=== PATIENT | female | born 1995 | race Two or more races ===

== ENCOUNTER 2025-03-07 04:32 | Inpatient (IN) | payer OTHER ==
[~2025-03-07] VITALS: Ht 160 cm; Wt 2.7 kg
[2025-03-07] MEDS ORDERED: CEFAZOLIN SODIUM 1,000 MG VIAL IV SCH ×2 (04:45→12:00)
[2025-03-07] MEDS ORDERED: RINGERS SOLUTION,LACTATED 1,000 ML IV SCH (04:45)
[2025-03-07] MEDS ORDERED: PRENATAL TABLE1 EAC1 PO (05:20)
[2025-03-07] MEDS ORDERED: IRON325 MG PO (05:20)
[2025-03-07] MEDS ORDERED: NIFEDIPINE20 MG PO (05:21)
[2025-03-07] MEDS ORDERED: ECOTRIN81 MG PO (05:21)
[2025-03-07] MEDS ORDERED: LOVENOX40 MG/0.4 SUBCUTANEO (05:21)
[2025-03-07 05:22] VITALS: BP 105/67
[2025-03-07] MEDS ORDERED: OXYTOCIN 10 UNITS/ML VIAL ONE (06:57)
[2025-03-07] MEDS ORDERED: ERYTHROMYCIN BASE OPHT 1GM EACH TUBE OP ONE (06:58)
[2025-03-07 07:19] VITALS: BP 113/74
[2025-03-07] MEDS ORDERED: CARBOPROST TROMETHAMINE 250 MCG/ML AMPUL IM ONE (08:34)
[2025-03-07] MEDS ORDERED: PROMETHAZINE HCL 25 MG/ML AMPUL IV SCH (12:00)
[2025-03-07] MEDS ORDERED: KETOROLAC TROMETHAMINE 30 MG VIAL IM SCH (12:00)
[2025-03-07 13:29] VITALS: BP 100/64
[2025-03-07 16:30] VITALS: BP 108/70
[2025-03-08] VITALS: BP 98/62
[2025-03-08 07:40] LABS: BASO % 0.4 % (0.1-1.2); EOS # 0.09 (0.04-0.54); EOS % 0.9 % (0.7-7.0); LYMPH # 1.71 (1.18-3.74); LYMPH % 17.6 % (19.3-53.1); MEAN PLATELET VOLUME 9.70 fl (9.4-12.4); MONO # 0.76 (0.24-0.82); MONO % 7.8 % (4.7-12.5); NEUT # 6.98 (1.56-6.13); NEUT % 71.9 % (34.0-71.1); RED CELL DISTRIBUTION WIDTH 13.2 % (11.6-14.4)
[2025-03-08 09:48] VITALS: BP 101/65
[2025-03-08] MEDS ORDERED: NAPROXEN 500 MG TABLET PO PRN (13:00)
[2025-03-08] MEDS ORDERED: DOCUSATE SODIUM 100MG CAP PO STA (14:38)
[2025-03-08 15:38] VITALS: BP 99/67
[2025-03-09 00:45] VITALS: BP 100/64
[2025-03-09 08:34] VITALS: BP 117/78
[2025-03-09] MEDS ORDERED: DOCUSATE SODIUM 100MG CAP PO SCH (09:00)
[2025-03-09 16:00] VITALS: BP 88/61
[2025-03-10] VITALS: BP 112/73
[2025-03-10 08:55] VITALS: BP 104/74; O2SAT 97
[2025-03-10 18:41] VITALS: BP 114/75
== END 2025-03-10 20:53 | disposition home or self-care (01) | DRG 788 ==
LOC: OB/GYN 04:32 → O/R 04:32 → LDR 04:32 → O/R 07:55 → OB/GYN 10:34
PROVIDERS: ADMIT Specialist; ATTEND Specialist
PROC: 0DNW0ZZ Release Peritoneum, Open Approach (ICD-10-PCS; 2025-03-07)
PROC: 4A1HXCZ Monitoring of Products of Conception, Cardiac Rate, External Approach (ICD-10-PCS; 2025-03-07)
PROC: 10D00Z1 Extraction of Products of Conception, Low, Open Approach (ICD-10-PCS; principal; 2025-03-07 12:45)
DX: O34.211 Maternal care for low transverse scar from previous cesarean delivery (principal); O99.62 Diseases of the digestive system complicating childbirth; K66.0 Peritoneal adhesions (postprocedural) (postinfection); Z3A.37 37 weeks gestation of pregnancy; Z37.0 Single live birth